=== PATIENT | female | born 1980 | race Caucasian/White ===

== ENCOUNTER 2018-01-12 12:07 | Observation (INO) | payer OTHER ==
[2018-01-12 12:54] LABS: PLATELET COUNT 211 10^3/uL (150-400)
[2018-01-12] MEDS ORDERED: CALCIUM GLUC 10% 1 GM/10 ML VIAL IVP PRN (14:23)
[2018-01-12] MEDS ORDERED: MAGNESIUM SULF 4 GM/WATER 100 ML IV ONE (14:23)
--- NOTE | 2018-01-12 14:57 | PDGENHP ---
History and Physical - Chief Complaint Post- pre-eclampsia - History of Present Illness Niyah is a 37 yo now - she is today POD8 s/p PLTCS with me on 01/04/18. Section was for NRFHT's, with no concern for PIH/PreE during the . She did develop mild range BP's on POD3 and when discharging on POD4 had plan to come back to office for BP check in 2d. At that visit (this past Tuesday) she had mild sx of YOUSSEF and anxiety, but mild range BP's again. Labs normal except high normal LFT's. Started on labetalol 100mg BID and plan to return today for repeat BP check. Today in office BP's even higher and patient feeling worse with symptoms of mild YOUSSEF, mild swelling, and feeling of anxiety. She denies significant vision changes (some floaters), no RUQ pain. Other than BP concerns her anxiety has been difficult since delivery - and she' s been started on Lexapro 5mg daily. She acknowledges that anxiety is probably a component on her BP, but likely not the whole story. History Information - Allergies/Home Medication List Allergies/Adverse Reactions: No Known Allergies Allergy (Unverified 01/04/18 19:48) I have personally reviewed and updated: family history, medical history, social history, surgical history - Social History Smoking Status: Former smoker Review of Systems Review of Systems: ROS: 10pt was reviewed & negative except for what was stated in HPI & below Physical Exam Physical Exam: Temp Pulse Resp BP Pulse Ox 73 166/90 H 01/12/18 12:47 01/12/18 12:47 Constitutional: no apparent distress, appears nourished, not in pain Eyes: PERRL Respiratory: No respiratory distress Gastrointestinal: soft, non-tender abdomen Skin: warm, normal color Musculoskeletal: full muscle strength Neurologic: AAOx3 Psychiatric: interacting appropriately, anxious Lab Data & Imaging Review 01/12/18 12:40 01/12/18 12:40 WBC 11.59 10^3/uL (3.80-9.50) H 01/12/18 12:40 RBC 3.54 10^6/uL (4.18-5.33) L 01/12/18 12:40 Hgb 11.7 g/dL (12.6-16.3) L 01/12/18 12:40 Hct 34.1 % (38.0-47.0) L 01/12/18 12:40 MCV 96.3 fL (81.5-99.8) 01/12/18 12:40 MCH 33.1 pg (27.9-34.1) 01/12/18 12:40 MCHC 34.3 g/dL (32.4-36.7) 01/12/18 12:40 RDW 12.5 % (11.5-15.2) 01/12/18 12:40 Plt Count 211 10^3/uL (150-400) 01/12/18 12:40 MPV 10.2 fL (8.7-11.7) 01/12/18 12:40 Neut % (Auto) 76.3 % (39.3-74.2) H 01/12/18 12:40 Lymph % (Auto) 15.7 % (15.0-45.0) 01/12/18 12:40 [place] % (Auto) 6.1 % (4.5-13.0) 01/12/18 12:40 Eos % (Auto) 1.1 % (0.6-7.6) 01/12/18 12:40 Baso % (Auto) 0.3 % (0.3-1.7) 01/12/18 12:40 Nucleat RBC Rel Count 0.0 % (0.0-0.2) 01/12/18 12:40 Absolute Neuts (auto) 8.84 10^3/uL (1.70-6.50) H 01/12/18 12:40 Absolute Lymphs (auto) 1.82 10^3/uL (1.00-3.00) 01/12/18 12:40 Absolute Monos (auto) 0.71 10^3/uL (0.30-0.80) 01/12/18 12:40 Absolute Eos (auto) 0.13 10^3/uL (0.03-0.40) 01/12/18 12:40 Absolute Basos (auto) 0.03 10^3/uL (0.02-0.10) 01/12/18 12:40 Absolute Nucleated RBC 0.00 10^3/uL (0-0.01) 01/12/18 12:40 Immature Gran % 0.5 % (0.0-1.1) 01/12/18 12:40 Immature Gran # 0.06 10^3/uL (0.00-0.10) 01/12/18 12:40 BUN 18 mg/dL (7-23) 01/12/18 12:40 Creatinine 0.9 mg/dL (0.6-1.0) 01/12/18 12:40 Estimated GFR > 60 01/12/18 12:40 Uric Acid 6.0 mg/dL (2.5-6.8) 01/12/18 12:40 Total Bilirubin 0.2 mg/dL (0.1-1.4) 01/12/18 12:40 Conjugated Bilirubin 0.1 mg/dL (0.0-0.5) 01/12/18 12:40 Unconjugated Bilirubin 0.1 mg/dL (0.0-1.1) 01/12/18 12:40 AST 62 IU/L (14-46) H 01/12/18 12:40 ALT 86 IU/L (9-52) H 01/12/18 12:40 Lactate Dehydrogenase 669 IU/L (313-618) H 01/12/18 12:40 Assessment & Plan Assessment: 37 yo now , POD8 s/p PLTCS for indications - now presenting with severe range BP's and worsening labs diagnostic of post- preeclampsia. I had a long discussion with Niyah and her partner today. While being evaluated initially she had a number of severe range pressures > 160 to 170's. She described worsening sx of YOUSSEF and swelling, and her labs came back more abnormal than they were two days ago with LFT's approxiately doubling. I counseled her that I do think this is real PP pre-eclampsia and safest thing to do would be to admit her, treat BP's and start magnesium for at least 24 hrs. She is comfortable with this plan. - Mag 4g bolus, 2g/hr infusion, for at least 24 hrs. - Clear liquids with 150 cc/hr total PO and IV intake limit for the first many hours, can re-evaluate diet later this evening. - OK to use commode or ambulate to bathroom if safe. - Repeat labs in the AM. - Increase labetalol to 200mg BID. - IV antihypertensives PRN. JM
[2018-01-12] MEDS: LABETALOL HCL 200 MG TAB PO SCH ×2 (15:00→23:19)
[2018-01-12] MEDS: Mag Sulf 500 ML IV SCH (15:27)
[2018-01-12] MEDS ORDERED: ACETAMINOPHEN 500 MG TAB PO PRN (15:31)
[2018-01-12] MEDS ORDERED: IBUPROFEN 800 MG TAB PO PRN (15:32)
[2018-01-12] MEDS ORDERED: TUBERCULIN,PURIF/PROT/DERIV. 1 ML MDV ID ONE (15:42)
[2018-01-12] MEDS: ESCITALOPRAM OXALATE 10 MG TAB PO SCH (16:13)
[2018-01-12] MEDS ORDERED: ZOLPIDEM TARTRATE 5 MG TAB PO PRN (17:11)
[2018-01-12] MEDS ORDERED: IBUPROFEN 600 MG TAB PO ONE (17:17)
[2018-01-12] MEDS: IBUPROFEN 600 MG TAB PO PRN ×2 (17:38→22:53)
[2018-01-12] MEDS ORDERED: LORazepam 1 MG TAB PO PRN (19:45)
[2018-01-12] MEDS: HYDROCODONE/APAP 5/325 TAB PO PRN (20:17)
[2018-01-12 21:25] VITALS: BP 128/82
[2018-01-13] MEDS: HYDROCODONE/APAP 5/325 TAB PO PRN ×4 (01:02→15:02)
[2018-01-13] MEDS: Mag Sulf 500 ML IV SCH ×2 (03:14→10:55)
[2018-01-13] MEDS: IBUPROFEN 600 MG TAB PO PRN ×3 (05:15→17:23)
[2018-01-13 05:44] LABS: PLATELET COUNT 244 10^3/uL (150-400)
[2018-01-13] MEDS: ESCITALOPRAM OXALATE 10 MG TAB PO SCH (08:56)
--- NOTE | 2018-01-13 11:30 | OBPP ---
Progress Note Assessment/Plan: Assessment: pod/ppd# 7 s/p pltcs readmission for post preeclampsia - on magnesium sulfate - labs stable blood pressures stabilized - will buy blood pressure cuff and bring it in to be calibrated anxiety - mood stable on lexapro Plan: 01/13/18 11:27 01/13/18 11:29 Subjective/ Course: 01/13/18 11:28 patient is doing well. pain is well controlled. has a headache on the magnesium but is overall feeling better. has been diuresing well. denies visual changes. breast feeding is going well. wants to go home today if able to. mood stable . Objective: 01/13/18 05:22 01/13/18 05:22 Uric Acid 6.3 mg/dL (2.5-6.8) 01/13/18 05:22 Total Bilirubin 0.2 mg/dL (0.1-1.4) 01/13/18 05:22 Conjugated Bilirubin 0.0 mg/dL (0.0-0.5) 01/13/18 05:22 Unconjugated Bilirubin 0.2 mg/dL (0.0-1.1) 01/13/18 05:22 AST 56 IU/L (14-46) H 01/13/18 05:22 ALT 87 IU/L (9-52) H 01/13/18 05:22 Lactate Dehydrogenase 675 IU/L (313-618) H 01/13/18 05:22 Temp Pulse Resp BP Pulse Ox 73 128/82 H 01/12/18 12:47 01/12/18 20:15 Physical Exam - Physical Exam Neck: non-tender, full range of motion, supple Respiratory: chest non-tender, lungs clear, normal breath sounds Cardiac/Chest: normal peripheral pulses, regular rate, rhythm Abdomen: normal bowel sounds, hypoactive bowel sounds, non-tender Extremities: normal range of motion, non-tender, normal inspection, normal capillary refill Skin: normal color, warm/dry, other (incision clean dry in intact) Neuro/Psych: no motor/sensory deficits, alert, normal mood/affect, oriented x 3
[2018-01-13] MEDS: LABETALOL HCL 200 MG TAB PO SCH (18:31)
--- NOTE | 2018-01-13 20:22 | OBPP ---
Progress Note Assessment/Plan: Assessment: pod/ppd# 7 s/p pltcs readmission for post preeclampsia - on magnesium sulfate - labs stable blood pressures stabilized - will buy blood pressure cuff and bring it in to be calibrated anxiety - mood stable on lexapro Plan: 01/13/18 11:27 01/13/18 11:29 Subjective/ Course: 01/13/18 11:28 patient is doing well. pain is well controlled. has a headache on the magnesium but is overall feeling better. has been diuresing well. denies visual changes. breast feeding is going well. wants to go home today if able to. mood stable . 01/13/18 20:21 patient is feeling well since mag is off. denies headache. wants to go home. has blood pressure cuff. will follow up in the office next week and call if any issues Objective: 01/13/18 05:22 01/13/18 05:22 Uric Acid 6.3 mg/dL (2.5-6.8) 01/13/18 05:22 Total Bilirubin 0.2 mg/dL (0.1-1.4) 01/13/18 05:22 Conjugated Bilirubin 0.0 mg/dL (0.0-0.5) 01/13/18 05:22 Unconjugated Bilirubin 0.2 mg/dL (0.0-1.1) 01/13/18 05:22 AST 56 IU/L (14-46) H 01/13/18 05:22 ALT 87 IU/L (9-52) H 01/13/18 05:22 Lactate Dehydrogenase 675 IU/L (313-618) H 01/13/18 05:22 Temp Pulse Resp BP Pulse Ox 73 128/82 H 01/12/18 12:47 01/12/18 20:15
== END 2018-01-13 20:56 | disposition home or self-care (01) ==
LOC: FLD 12:07
PROVIDERS: ADMIT Advanced Practice Midwife; ATTEND Advanced Practice Midwife
DX: O14.15 Severe pre-eclampsia, complicating the puerperium (principal); O99.345 Other mental disorders complicating the puerperium; F41.9 Anxiety disorder, unspecified
CPT/HCPCS: G0378 ×2; J0610; J3475